=== PATIENT | male | born 1945 | race Caucasian/White ===

== ENCOUNTER 2023-07-14 13:25 | Emergency (ER) | payer MEDICARE, OTHER ==
[2023-07-14 13:45] VITALS: BP 131/65; O2SAT 95
--- NOTE | 2023-07-14 14:57 | ED Physician Documentation ---
History of Present Illness - Stated complaint Stated Complaint: LT LEG SWELLING/PX - Chief complaint Chief Complaint: Ext Problem - Additonal information Additional information: 77-year-old male presents emergency department for evaluation of redness and induration to the left lower medial leg that began about 5 days ago. He flew into [facility] yesterday evening. [place] doctor had given him a prescription for Augmentin for any infections that could have been associated with salt water. He has been taking the Augmentin for 4 days without resolution of symptoms. No fevers. Denies any falls or trauma. No history of DVT. Review of Systems Constitutional: denies: Fever, Chills Skin: reports: Lesions Musculoskeletal: reports: Reviewed and negative PD PAST MEDICAL HISTORY - Present Medications Home Medications: Ambulatory Orders Medication Instructions Recorded Confirmed Doxycycline Hyclate 100 mg PO BID 14 Days #28 cap 07/14/23 - Allergies Allergies/Adverse Reactions: Allergies Allergy/AdvReac Type Severity Reaction Status Date / Time No Known Drug Allergies Allergy Verified 07/14/23 13:36 PD ED PE EXPANDED - General General: Alert, No acute distress - Extremities Extremities: Left leg (Moderate swelling erythema and induration that is tender to palpation on left lower medial leg from the medial ankle up to the mid calf. 2+ DP pulse. No open sores lesions or drainage.) Results - Vitals Vitals: Vital Signs - 24 hr 07/14/23 13:32 Temperature 36.5 C Heart Rate 75 Respiratory 15 Rate Blood Pressure 131/65 H O2 Saturation 95 Oxygen O2 Source Room air PD Medical Decision Making - ED course Complexity details: d/w patient ED course: Well-appearing 77-year-old male presents to the emergency department for evaluation of left lower medial leg swelling erythema and induration began about 5 days ago. Exam is consistent with cellulitis. Here in the emergency department his vital signs were without fever tachycardia or hypotension. He has been taking Augmentin which I would not typically expect to be effective for skin infection such as this. Therefore we will transition him to doxycycline. Patient is requesting a 14-day course as he states he has had cellulitis in this leg historically that has not resolved with shorter courses of antibiotics. Discussed with patient the usual emergent return precautions for concerns of worsening infection. Departure - Departure Disposition: 01 Home, Self Care Clinical Impression: Left leg cellulitis Condition: Stable Record reviewed to determine appropriate education?: Yes Instructions: Cellulitis Dc Prescriptions: Doxycycline Hyclate 100 mg PO BID 14 Days #28 cap Comments: Phillip you do have a superficial skin infection of the left lower leg. We will start you on doxycycline and antibiotic that is typically quite effective at cellulitis treatment. While on the doxycycline I recommend that you wear long sleeves and a hat while outside because you can get a rash with sun exposure. Please elevate this leg is much as you can especially at night when asleep. A warm compress can also be helpful. With the antibiotics I would expect marked improvement in the redness and swelling over the next 3 to 4 days. If not improving, you develop fevers, have any red streaking of the leg or signs of worsening infection then please do not hesitate to return to the ER.
== END 2023-07-14 15:01 | disposition home or self-care (01) ==
LOC: ED 13:25
DX: L03.116 Cellulitis of left lower limb (principal)
CPT/HCPCS: 99282; 99283